=== PATIENT | female | born 1970 | race Caucasian/White ===

== ENCOUNTER 2019-10-30 12:11 | Emergency (ER) | payer OTHER, SELFPAY ==
[2019-10-30 12:34] VITALS: BP 139/96; PULSE 89; RESP 16; TEMP 37.4; O2SAT 99
--- NOTE | 2019-10-30 12:41 | ED.GENADULT ---
HPI - General Adult General Chief complaint: Unspecified Stated complaint: High BP Time Seen by Provider: 10/30/19 12:41 Source: patient Mode of arrival: ambulatory Limitations: no limitations History of Present Illness HPI narrative: 49-year-old female patient presents to the [facility] with complaints of high blood pressure. Patient states she also has developed headache to the right side of her head that started yesterday. Patient states she has been off her lisinopril for about a month now. Patient states she did did develop a cough while on the lisinopril and she was out anyway so they stopped taking it. Her primary doctor is in [place] and unwilling to refill any blood pressure medication until he sees her. Patient states she continues to take her other blood pressure medication hydrochlorothiazide. Patient denies any chest pain or shortness of breath at this time. Denies any cold symptoms or fevers recently. Related Data Home Medications Medication Instructions Recorded Confirmed amlodipine 5 mg PO DAILY 10/30/19 10/30/19 hydrochlorothiazide 12.5 mg PO DAILY 10/30/19 10/30/19 Allergies Allergy/AdvReac Type Severity Reaction Status Date / Time benzonatate AdvReac Hallucinati Verified 10/30/19 12:47 [From Deborah Villalobos] ng lisinopril AdvReac Cough Verified 10/30/19 12:50 Review of Systems Review of Systems: Narrative: CONSTITUTIONAL: Denies fever, chills, or sweats. EYES: Denies visual changes, redness, or discharge. ENT: Denies rhinorrhea, congestion, sore throat, or otalgia. CARDIOVASCULAR: Denies chest pain, palpitations, or edema. RESPIRATORY: Denies cough or dyspnea. GASTROINTESTINAL: Denies abdominal pain, nausea, vomiting, or diarrhea. GENITOURINARY: Denies dysuria or hematuria. SKIN: Denies rash or itching. MUSCULOSKELETAL: Denies back pain, joint pain, or myalgia. NEUROLOGIC: Positive right-sided headache, denies numbness, or weakness. PSYCHIATRIC: Denies anxiety or depression. FORMERLY [facility], [facility]–1983 Past Medical History Medical History (Updated 10/30/19 @ 13:12 by MICHELE Hanna) Hypertension Comments At the time of my signature I agree with nursing past medical history, surgical, social, and family history. There is no relevant family history pertinent to the presenting complaint. Exam Narrative: Exam Narrative: GENERAL: Well-appearing, well-nourished, and in no acute distress. HEAD: Normocephalic, atraumatic. No tenderness noted to frontal maxillary sinuses on palpation. EYES: PERRLA and EOMI. ENT: Nares clear, no rhinorrhea or epistaxis. Mucous membranes moist. Posterior pharynx with no erythema, tonsil enlargement, exudates or lesions present. There is some fluid behind bilateral TMs. NECK: Supple. No lymphadenopathy CHEST: Clear to auscultation. No respiratory distress. Patient able talk in clear complete sentences. HEART: Regular rate and rhythm. No murmur heard. Normal peripheral pulses. ABDOMEN: Soft, nontender, nondistended, normal active bowel sounds. EXTREMITIES: Normal range of motion. No edema. SKIN: Warm, dry, no rash. NEURO: No focal deficits. Alert and oriented x3. Course Reevaluation(s) Reevaluation #1: Discussed with patient that given her symptoms her blood pressure spiking up, headache and then her EKG that shows today I think we need to send her to the ER for further evaluation and treatment. That is she is not having any chest pain or shortness of breath is reassuring however the symptoms could be very subtle in lead to something else if it is not caught in time. Patient verbalized understanding states that she will go to the ER. We have decided to send her to [facility] ER for further evaluation and treatment. Offered to call patient EMS however she states that her is can come and pick her up and take her there. Date: 10/30/19 Time: 13:09 Vital Signs Vital signs: Vital Signs Temperature 37.4 C 10/30/19 12:34 Pulse Rate 89 10/30/19 12:34 Respiratory Rate
--- NOTE | 2019-10-30 12:49 | ECG_ITS ---
Measurements Intervals [place] Rate: 80 P: -7 CT: 168 QRS: -29 QRSD: 80 T: 56 QT: 375 QTc: 434 Interpretive Statements SINUS RHYTHM VOLTAGE CRITERIA FOR LVH BORDERLINE R WAVE PROGRESSION, ANTERIOR LEADS HIGH LATERAL INFARCT, AGE INDETERMINATE BASELINE ARTIFACT- II, III, AVR, AVL, AVF ABNORMAL ECG Electronically Signed On 10-30-2019 14:21:16 [employer] by Andrez Worthy D.O.
== END 2019-10-30 13:11 | disposition short-term general hospital (02) ==
PROVIDERS: Emergency Provider Nurse Practitioner Family
DX: R51 Headache (principal); I10 Essential (primary) hypertension
CPT/HCPCS: 93005; 99203; G0463